=== PATIENT | male | born 1975 | race Caucasian/White ===

== ENCOUNTER 2022-10-26 19:48 | Inpatient (IN) | payer OTHER ==
[2022-10-26 20:55] LABS: Anisocytosis Slight; Basophils # (A) 0.1 k/uL (0-0.2); Basophils % (A) 1 %; Eosinophils # (A) 0.1 k/uL (0-0.7); Eosinophils % (A) 2 %; HCT 35.1 % (39.0-53.0); HGB 10.7 gm/dL (13.0-17.5); Hypochromasia Moderate; Lymphocytes # (A) 1.8 k/uL (1.0-4.8); Lymphocytes % (A) 29 %; MCHC 30.6 g/dL (31.0-37.0); MCV 71.7 fL (80.0-100.0); Mean Platelet Volume 7.7; Microcytosis Marked; Monocytes # (A) 0.4 k/uL (0-1.0); Monocytes % (A) 7 %; Neutrophils # (A) 3.6 k/uL (1.3-7.7); Neutrophils % (A) 58 %; Platelet Count 247 k/uL (150-450); Poikilocytosis Slight; RBC 4.89 m/uL (4.30-5.90); RDW 19.3 % (11.5-15.5); WBC 6.2 k/uL (3.8-10.6)
[2022-10-26 21:07] LABS: ALT 44 U/L (4-49); AST 47 U/L (17-59); African American GFR (CKD) >90 (>60 ml/min/1.73 sqM); Albumin 4.2 g/dL (3.5-5.0); Alkaline Phosphatase 126 U/L (38-126); Amylase 56 U/L (30-110); Anion Gap 8 mmol/L; Blood Urea Nitrogen 16 mg/dL (9-20); Calcium 8.4 mg/dL (8.4-10.2); Carbon Dioxide 26 mmol/L (22-30); Chloride 101 mmol/L (98-107); Glucose 115 mg/dL (74-99); Lipase 172 U/L (23-300); Non-African American GFR(CKD) >90 (>60 ml/min/1.73 sqM); Potassium 3.2 mmol/L (3.5-5.1); Sodium 135 mmol/L (137-145); Total Bilirubin 0.5 mg/dL (0.2-1.3); Total Protein 7.2 g/dL (6.3-8.2)
[2022-10-26] MEDS ORDERED: SODIUM CHLORIDE 0.9% 1,000 ML IV STA (21:37)
[2022-10-26] MEDS ORDERED: ONDANSETRON 4 MG/2 ML VIAL IVP STA (21:51)
--- NOTE | 2022-10-26 21:51 | ED ---
Alcohol HPI - General Chief Complaint: Abdominal Pain Stated Complaint: detox,vomiting Time Seen by Provider: 10/26/22 21:30 Source: patient, RN notes reviewed Mode of arrival: ambulatory Limitations: no limitations - History of Present Illness Initial Comments: Patient is a 47-year-old male presenting to the emergency room with complaints of abdominal pain nausea vomiting along with tremors. He reports that he is attempting to quit drinking and had his last drink approximately 24 hours ago. He has been drinking approximately a fifth a day for the last 8 months. He did have a brief period of sobriety prior to that 8 months but has recurrent alcohol abuse and has gone through alcohol withdrawals in the past. He reports that he was hoping to become sober prior to 24 hours ago but he began to go to withdrawals consequently he had a drink again. In addition to his alcohol abuse history he has past medical history significant for degenerative disc disease. - Related Data Home Medications Medication Instructions Recorded Confirmed Albuterol Sulfate [Ventolin HFA] 1 - 2 puff INHALATION RT-Q6H PRN 10/27/22 10/27/22 Buprenorphine HCl/Naloxone HCl 2 - 3 film SUBLINGUAL DIRECTED 10/27/22 10/27/22 [Suboxone 8 mg-2 mg Sl Film] Cyclobenzaprine [Flexeril] 10 mg PO BID PRN 10/27/22 10/27/22 Fluticasone Propionate [Flonase 2 spray EA NOSTRIL DAILY 10/27/22 10/27/22 Allergy Relief] Meloxicam 7.5 mg PO BID 10/27/22 10/27/22 Naproxen Sodium [Naproxen Sodium 375 mg PO BID 10/27/22 10/27/22 ER] Omeprazole 40 mg PO BID 10/27/22 10/27/22 Pregabalin [Lyrica] 100 mg PO TID 10/27/22 10/27/22 QUEtiapine [SEROquel] 100 mg PO BID 10/27/22 10/27/22 QUEtiapine [SEROquel] 400 mg PO HS 10/27/22 10/27/22 Sucralfate [Carafate] 1 gm PO BID 10/27/22 10/27/22 Previous Rx's Medication Instructions Recorded Magnesium Oxide [Mag-Ox] 400 mg PO DAILY 30 Days #30 tab 11/03/22 Nicotine 21Mg/24Hr Patch [Habitrol] 1 patch TRANSDERM DAILY 30 Days 11/03/22 #30 patch Thiamine [Vitamin B-1] 100 mg PO DAILY 30 Days #30 tab 11/03/22 cloNIDine HCL [Catapres] 0.1 mg PO TID 30 Days #90 tab 11/03/22 lamoTRIgine [LaMICtal] 50 mg PO BID 30 Days #60 tab 11/03/22 Allergies Allergy/AdvReac Type Severity Reaction Status Date / Time No Known Allergies Allergy Verified 10/27/22 07:30 Review of Systems ROS Statement: Those systems with pertinent positive or pertinent negative responses have been documented in the HPI. ROS Other: All systems not noted in ROS Statement are negative. Past Medical History Additional Past Medical History / Comment(s): herniated disc in back History of Any Multi-Drug Resistant Organisms: None Reported Past Surgical History: No Surgical Hx Reported Smoking Status: Current every day smoker Past Alcohol Use History: Abuse Past Drug Use History: Marijuana - Past Family History Father Family Medical History: Cancer Additional Family Medical History / Comment(s): from colon cancer Mother Family Medical History: Cancer Additional Family Medical History / Comment(s): from stomach cancer Brother(s) Additional Family Medical History / Comment(s): ptsd from General Exam - General Exam Comments Initial Comments: GENERAL: No acute distress, well developed, well nourished. HEENT: Normocephalic, atraumatic. Pupils equal, round, reactive to light. Moist mucous membranes. LUNGS: No respiratory distress. Clear to auscultation, no adventitious sounds, no use of accessory muscles. HEART: Mild tachycardia, regular rhythm without murmur, rub, or gallop. ABDOMEN: Normal bowel sounds. Soft, non-distended. Mild generalized tenderness. BACK: Normal inspection. EXTREMITIES: No edema. No tenderness. Moves all extremities. NEUROLOGIC: Alert & oriented x 3. CN II-XII grossly intact. Fine hand tremor noted bilaterally with hands extended. PSYCHIATRIC: Anxious affect and behavior. DERMATOLOGIC: Skin intact, without rashes or lesions noted. Limitations: no limitations Course Vital Signs 10/26/22 10/26/22 10/26/22 20:27 22:24 23:53 Temperature 98.2 F Pulse Rate 122 H 116 H 99 Respiratory 16 18 18 Rate Blood Pressure 135/84 126/68 131/82 O2 Sat by Pulse 100 98 98 Oximetry 10/27/22 10/27/22 10/27/22 02:52 03:08 04:15 Temperature Pulse Rate 118 H 113 H 106 H Respiratory 18 18 18 Rate Blood Pressure 128/78 109/56 136/88 O2 Sat by Pulse 98 97 98 Oximetry 10/27/22 10/27/22 10/27/22 05:15 06:11 07:01 Temperature Pulse Rate 100 100 95 Respiratory 18 16 Rate Blood Pressure 127/82 117/79 O2 Sat by Pulse 99 99 Oximetry 10/27/22 10/27/22 10/27/22 08:00 10:00 12:17 Temperature Pulse Rate 98 108 H 95 Respiratory 18 18 18 Rate Blood Pressure 118/77 150/89 128/85 O2 Sat by Pulse 95 96 95 Oximetry 10/27/22 14:13 Temperature Pulse Rate 93 Respiratory 17 Rate Blood Pressure 124/84 O2 Sat by Pulse 97 Oximetry Medical Decision Making - Medical Decision Making Was pt. sent in by a medical professional or institution ([facility]idez, [employer], urgent care, hospital, or custodial...) When possible be specific @ -No Did you speak to anyone other than the patient for history (EMS, parent, family, police, friend...)? What history was obtained from this source @ -No Did you review nursing and triage notes (agree or disagree)? Why? @ -I reviewed and agree with nursing and triage notes Were old charts reviewed (outside hosp., previous admission, EMS record, old EKG, old radiological studies, urgent care reports/EKG's, custodial records)? Report findings @ -No old charts were reviewed Differential Diagnosis (chest pain, altered mental status, abdominal pain women, abdominal pain men, vaginal bleeding, weakness, fever, dyspnea, syncope, headache, dizziness, GI bleed, back pain, seizure, CVA, palpatations, mental health)? @ -MDM differentialDifferential Abdominal Pain Men: Appendicitis, cholecystitis, diverticulosis, ischemic bowel, pancreatitis, hepatitis, UTI, gastroenteritis, AAA, incarcerated hernia, bowel obstruction, constipation, inflammatory bowel, hepatitis, peptic ulcer disease, splenic infarction, perforated viscus, testicular torsion, this is not meant to be an all-inclusive list EKG interpreted by me (3pts min.). @ -None done X-rays interpreted by me (1pt min.). @ -KUB as ordered by triaging team without acute abnormalities. Normal gas pattern, no free air, free fluid or masses. CT interpreted by me (1pt min.). @ -None done U/S interpreted by me (1pt. min.). @ -None done What testing was considered but not performed or refused? (CT, X-rays, U/S, labs)? Why? @ -CT of the abdomen was considered due to abdominal pain however in the setting of DTs with nausea and vomiting will defer. What meds were considered but not given or refused? Why? @ -None Did you discuss the management of the patient with other professionals (professionals i.e. DrMelisa, PA, FI[employer] EXTINGUISHER CHARGER, lab, RT, psych nurse, social service worker, clinical assessment manager, teacher, home lending officer, shoe caser)? Give summary @ -Dr. Truong regarding recommendation for admission for alcohol withdrawal. He is accepting of admission. Was smoking cessation discussed for >3mins.? @ -No Was critical care preformed (if so, how long)? @ -No Were there social determinants of health that impacted care today? How? (Ho melessness, low income, unemployed, alcoholism, drug addiction, transportation, low edu. Level, literacy, decrease access to med. care, [place] [facility], rehab)? @ -Alcoholism, no plan for admission into rehabilitation upon discharge at this time. Was there de-escalation of care discussed even if they declined (Discuss DNR or withdrawal of care, Hospice)? DNR status @ -No What co-morbidities impacted this encounter? (DM, HTN, Smoking, COPD, CAD, Cancer, CVA, ARF, Chemo, Hep., AIDS, mental health diagnosis, sleep apnea, morbid obesity)? @ -Alcoholism Was patient admitted / discharged? Hospital course, mention meds given and route, prescriptions, significant lab abnormalities, going to OR and other pertinent info. @ -47-year-old male presenting to the emergency room with complaints of abdominal pain, nausea vomiting tremors and anxiety ongoing since earlier today. He reports that he quit drinking approximately 24 hours ago. He states that his drink 24 hours ago was to help luis the symptoms he is currently experiencing. Triage orders included a KUB, CMP, amylase, lipase, CMP and CBC; will add breath alcohol test, serum alcohol level, magnesium and phosphorus level. Will give IV fluid bolus and Zofran monitor symptoms. Nausea improved with Zofran and IV fluids still with persistent tremor and anxiety. Laboratory results show anemia, no leukocytosis, slightly low sodium at 135 low potassium at 3.2 magnesium slightly low but stable at 1.5, phosphorus normal at 3.2 amylase and lipase along with liver enzymes and bilirubin normal serum alcohol level less than 10. Will repeat potassium IV in the setting of nausea and vomiting. Will initiate CIWA scale and give a one-time dose of Ativan. Symptoms markedly improved with IV Ativan. CIWA score is 17 indicating it need for admission for detox for alcohol withdrawals. Spoke with Dr. Truong as above regarding admission for alcohol withdrawals, nausea and vomiting. He is accepting of admission. Will continue IV hydration, will give banana bag after IV potassium completed. Will admit patient in stable condition to [facility] under Dr. Truong for treatment of alcohol withdrawals. Undiagnosed new problem with uncertain prognosis? @ -No Drug Therapy requiring intensive monitoring for toxicity (Heparin, Nitro, Insulin, Cardizem)? @ -No Were any procedures done? @ -No Diagnosis/symptom? @ -Alcohol withdrawals Acute, or Chronic, or Acute on Chronic? @ -Acute Uncomplicated (without systemic symptoms) or Complicated (systemic symptoms)? @ -Complicated Side effects of treatment? @ -No Exacerbation, Progression, or Severe Exacerbation? @ -No Poses a threat to life or bodily function? How? (Chest pain, USA, MD, pneumonia, PE, COPD, DKA, ARF, appy, cholecystitis, CVA, Diverticulitis, Homicidal, Suicidal, threat to staff... and all critical care pts) @ -Yes Diagnosis/symptom? @ -Hypokalemia Acute, or Chronic, or Acute on Chronic? @ -Acute Uncomplicated (without systemic symptoms) or Complicated (systemic symptoms)? @ -Complicated Side effects of treatment? @ -none Exacerbation, Progression, or Severe Exacerbation] @ -no Poses a threat to life or bodily function? @ -Yes Case discussed with Dr. Fletcher. - Lab Data Result diagrams: 11/02/22 06:10 11/02/22 06:10 Lab Results 10/26/22 10/26/22 10/26/22 Range/Units 20:48 20:48 21:41 WBC 6.2 (3.8-10.6) k/uL RBC 4.89 (4.30-5.90) m/uL Hgb 10.7 L (13.0-17.5) gm/dL Hct 35.1 L (39.0-53.0) % MCV 71.7 L (80.0-100.0) fL MCH 22.0 L (25.0-35.0) pg MCHC 30.6 L (31.0-37.0) g/dL RDW 19.3 H (11.5-15.5) % Plt Count 247 (150-450) k/uL MPV 7.7 Neutrophils % 58 % Lymphocytes % 29 % Monocytes % 7 % Eosinophils % 2 % Basophils % 1 % Neutrophils # 3.6 (1.3-7.7) k/uL Lymphocytes # 1.8 (1.0-4.8) k/uL Monocytes # 0.4 (0-1.0) k/uL Eosinophils # 0.1 (0-0.7) k/uL Basophils # 0.1 (0-0.2) k/uL Hypochromasia Moderate Poikilocytosis Slight Anisocytosis Slight Microcytosis Marked Sodium 135 L (137-145) mmol/L Potassium 3.2 L (3.5-5.1) mmol/L Chloride 101 (98-107) mmol/L Carbon Dioxide 26 (22-30) mmol/L Anion Gap 8 mmol/L BUN 16 (9-20) mg/dL Creatinine 0.77 (0.66-1.25) mg/dL Est GFR (CKD-EPI)AfAm >90 (>60 ml/min/1.73 sqM) Est GFR (CKD-EPI)NonAf >90 (>60 ml/min/1.73 sqM) Glucose 115 H (74-99) mg/dL Calcium 8.4 (8.4-10.2) mg/dL Phosphorus 3.2 (2.5-4.5) mg/dL Magnesium 1.5 L (1.6-2.3) mg/dL Total Bilirubin 0.5 (0.2-1.3) mg/dL AST 47 (17-59) U/L ALT 44 (4-49) U/L Alkaline Phosphatase 126 (38-126) U/L Total Protein 7.2 (6.3-8.2) g/dL Albumin 4.2 (3.5-5.0) g/dL Amylase 56 (30-110) U/L Lipase 172 (23-300) U/L Serum Alcohol <10 mg/dL - Radiology Data Radiology results: report reviewed, image reviewed Disposition Clinical Impression: Alcohol withdrawal, Hypokalemia Disposition: ADMITTED IP TO THIS [facility] Condition: Stable Time of Disposition: 00:05
--- NOTE | 2022-10-26 21:56 | XR ---
EXAMINATION TYPE: XR KUB DATE OF EXAM: 10/26/2022 COMPARISON: NONE HISTORY: Abdomen pain TECHNIQUE: 2 view FINDINGS: Bowel gas pattern is normal. No sign of intestinal obstruction or pneumoperitoneum. Fecal p attern is normal. No evidence of a mass. IMPRESSION: Nonacute abdomen.
[2022-10-26] MEDS ORDERED: POTASSIUM CHLORIDE 20 MEQ in WATER FOR INJECTION 1 100ML.BAG IVPB STA (22:04)
[2022-10-26] MEDS ORDERED: LORazepam 1 MG TAB PO STA (22:34)
[2022-10-27 00:07] LABS: Alcohol <10 mg/dL; Magnesium 1.5 mg/dL (1.6-2.3)
[2022-10-27] MEDS ORDERED: NALOXONE 0.4 MG/ML 1 ML VIAL IV PRN (00:08)
[2022-10-27 00:28] LABS: Phosphorus 3.2 mg/dL (2.5-4.5)
[2022-10-27 01:06] LABS: Amphetamine Screen,Urine Not Detected (NotDetected); Barbiturate Screen,Urine Not Detected (NotDetected); Benzodiazepines Screen,Urine Not Detected (NotDetected); Cocaine Screen,Urine Detected (NotDetected); Methadone Screen, Urine Not Detected (NotDetected); Opiate Screen,Urine Not Detected (NotDetected); Oxycodone Screen, Urine Not Detected (NotDetected); Phencyclidine Screen,Urine Not Detected (NotDetected); Tricyclic Antidepressant,Urine Detected (NotDetected); Urn Cannabinoid Scrn Not Detected (NotDetected)
[2022-10-27] MEDS: LORazepam 1 MG TAB PO PRN ×4 (01:07→23:52)
[2022-10-27] MEDS: 0.9% NACL WITH KCL 20 MEQ/L 1,000 ML with THIAMINE 100 MG, FOLIC ACID 1 MG IV SCH ×6 (01:08→20:58)
[2022-10-27] MEDS: QUEtiapine 400 MG TAB PO SCH ×2 (01:23→20:58)
--- NOTE | 2022-10-28 02:07 | HP ---
HISTORY AND PHYSICAL HISTORY OF PRESENT ILLNESS: A 47-year-old white male, admitted with abdominal pain, nausea, vomiting, tremors. He quit drinking 24 hours ago. for 8 months, has recurrent alcohol abuse, came in with CIWA protocol, alcohol withdrawal, alcohol abuse, has history of degenerative disk disease. ALLERGIES: Negative. PAST MEDICAL HISTORY: Herniated discs in the back, current everyday smoker. No alcohol. Marijuana abuser. REVIEW OF SYSTEMS: A 14-point review of systems, tremors, weakness, fatigue, otherwise negative. PHYSICAL EXAMINATION: VITAL SIGNS: Pulse rate is 99/122, respiratory rate 16-18, blood pressure is 120s to 130s over 80s to 90s, O2 98 to 100, and temp 98.2. CARDIOVASCULAR: S1, S2. LUNGS: Clear. GI: Soft. PSYCH: Fair mood and affect. NEUROLOGIC: Cranial nerves intact, mild tremor. LABORATORY DATA: Potassium 3.2, sodium 135, alcohol less than 10. Lipase 172. ASSESSMENT: Alcohol withdrawal syndrome with mild tremors, dehydration, alcohol dependence, acute on chronic anemia secondary to alcoholism and tachycardia secondary to alcohol withdrawal. CIWA protocol, multivitamins thiamin. Continue with Ativan p.r.n. Prognosis guarded. MMODL / IJN: [id number] /
[2022-10-28] MEDS: LORazepam 1 MG TAB PO PRN ×4 (04:47→22:04)
[2022-10-28 07:06] LABS: ALT 40 U/L (4-49); AST 44 U/L (17-59); African American GFR (CKD) >90 (>60 ml/min/1.73 sqM); Albumin 3.2 g/dL (3.5-5.0); Albumin/Globulin Ratio 1.3; Alkaline Phosphatase 85 U/L (38-126); Anion Gap 3 mmol/L; Blood Urea Nitrogen 7 mg/dL (9-20); Calcium 8.1 mg/dL (8.4-10.2); Carbon Dioxide 27 mmol/L (22-30); Chloride 108 mmol/L (98-107); Globulin 2.5 g/dL; Glucose 92 mg/dL (74-99); Non-African American GFR(CKD) >90 (>60 ml/min/1.73 sqM); Potassium 3.6 mmol/L (3.5-5.1); Sodium 138 mmol/L (137-145); Total Bilirubin 0.2 mg/dL (0.2-1.3); Total Protein 5.7 g/dL (6.3-8.2)
[2022-10-28 07:21] LABS: Anisocytosis Slight; HCT 28.7 % (39.0-53.0); Hypochromasia Marked; MCH 22.4 pg (25.0-35.0); MCHC 30.6 g/dL (31.0-37.0); Microcytosis Moderate; Platelet Count 242 k/uL (150-450); Poikilocytosis Slight; RBC 3.93 m/uL (4.30-5.90); RDW 19.3 % (11.5-15.5); WBC 3.7 k/uL (3.8-10.6)
[2022-10-28 07:22] LABS: HGB 8.8 gm/dL (13.0-17.5)
[2022-10-28] MEDS: THIAMINE 100 MG TAB PO SCH (08:40)
[2022-10-28] MEDS ORDERED: ALBUTEROL NEBULIZED 2.5 MG/3 ML INHALATION PRN (10:30)
[2022-10-28] MEDS: QUEtiapine 100 MG TAB PO SCH ×2 (11:12→20:07)
[2022-10-28] MEDS: SUCRALFATE 1 GM TAB PO SCH ×2 (11:12→20:07)
[2022-10-28] MEDS: NON FORMULARY DRUG (Buprenorphine Hcl/Naloxone Hcl [Suboxone 8 Mg-2 Mg Sl Film] 1 EACH Fil SUBLINGUAL SCH (11:15)
[2022-10-28 14:00] LABS: Basophils # (M) 0.04 k/uL (0-0.2); Eosinophils # (M) 0.15 k/uL (0-0.7); Monocytes # (M) 0.41 k/uL (0-1.0); Neutrophils # (M) 1.81 k/uL (1.3-7.7); Neutrophils % (M) 49 %; Nucleated Red Blood Cells 0 /100 WBC (0-0); Total Cells Counted 100
[2022-10-28 14:03] LABS: Target Cells Present
[2022-10-28 14:04] LABS: Mixed Population RBC Present
[2022-10-28] MEDS: PREGABALIN 100 MG CAP PO SCH ×2 (16:18→21:30)
[2022-10-28] MEDS: PANTOPRAZOLE 40 MG TABLET PO SCH (17:33)
[2022-10-28] MEDS: 0.9% NACL WITH KCL 20 MEQ/L 1,000 ML with THIAMINE 100 MG, FOLIC ACID 1 MG IV SCH ×3 (17:56)
[2022-10-28] MEDS: ONDANSETRON 4 MG/2 ML VIAL IVP PRN (17:57)
[2022-10-28] MEDS: MELOXICAM 7.5 MG TAB PO SCH (20:06)
[2022-10-28] MEDS: NAPROXEN 250 MG TAB PO SCH (20:07)
[2022-10-28] MEDS: QUEtiapine 400 MG TAB PO SCH (20:07)
[2022-10-28] MEDS ORDERED: SUCRALFATE 1 GM TAB PO SCH (21:00)
[2022-10-28] MEDS: cloNIDine HCL 0.1 MG TAB PO SCH (22:10)
[2022-10-29] MEDS: ONDANSETRON 4 MG/2 ML VIAL IVP PRN (00:04)
[2022-10-29] MEDS: LORazepam 1 MG TAB PO PRN ×4 (00:04→23:23)
[2022-10-29] MEDS: cloNIDine HCL 0.1 MG TAB PO SCH ×3 (06:16→21:24)
[2022-10-29] MEDS: NON FORMULARY DRUG (Buprenorphine Hcl/Naloxone Hcl [Suboxone 8 Mg-2 Mg Sl Film] 1 EACH Fil SUBLINGUAL SCH (08:00)
[2022-10-29] MEDS: MELOXICAM 7.5 MG TAB PO SCH (08:02)
[2022-10-29] MEDS: FAMOTIDINE 20 MG TAB PO SCH (08:02)
[2022-10-29] MEDS: PANTOPRAZOLE 40 MG TABLET PO SCH ×2 (08:02→17:15)
[2022-10-29] MEDS: SUCRALFATE 1 GM TAB PO SCH ×2 (08:03→21:24)
[2022-10-29] MEDS: PREGABALIN 100 MG CAP PO SCH ×3 (08:04→21:24)
[2022-10-29] MEDS: THIAMINE 100 MG TAB PO SCH (08:04)
[2022-10-29] MEDS: QUEtiapine 100 MG TAB PO SCH ×2 (08:04→21:25)
[2022-10-29] MEDS: NAPROXEN 250 MG TAB PO SCH ×2 (08:04→21:25)
[2022-10-29] MEDS: FLUTICASONE 50MCG/SPRAY NASAL 16GM EA NOSTRIL SCH (08:51)
[2022-10-29 13:20] LABS: ALT 49 U/L (4-49); AST 52 U/L (17-59); African American GFR (CKD) >90 (>60 ml/min/1.73 sqM); Albumin 3.3 g/dL (3.5-5.0); Albumin/Globulin Ratio 1.3; Alkaline Phosphatase 89 U/L (38-126); Anion Gap 3 mmol/L; Blood Urea Nitrogen 7 mg/dL (9-20); Calcium 8.3 mg/dL (8.4-10.2); Carbon Dioxide 27 mmol/L (22-30); Chloride 109 mmol/L (98-107); Globulin 2.6 g/dL; Glucose 103 mg/dL (74-99); Lipase 358 U/L (23-300); Magnesium 1.8 mg/dL (1.6-2.3); Non-African American GFR(CKD) >90 (>60 ml/min/1.73 sqM); Potassium 4.4 mmol/L (3.5-5.1); Sodium 139 mmol/L (137-145); Total Bilirubin 0.3 mg/dL (0.2-1.3); Total Protein 5.9 g/dL (6.3-8.2)
[2022-10-29 13:21] LABS: Anisocytosis Slight; Basophils % (A) 1 %; Eosinophils # (A) 0.1 k/uL (0-0.7); Eosinophils % (A) 3 %; HCT 29.3 % (39.0-53.0); HGB 8.9 gm/dL (13.0-17.5); Hypochromasia Marked; Lymphocytes # (A) 1.1 k/uL (1.0-4.8); Lymphocytes % (A) 25 %; MCH 22.7 pg (25.0-35.0); MCHC 30.4 g/dL (31.0-37.0); MCV 74.7 fL (80.0-100.0); Mean Platelet Volume 7.1; Microcytosis Moderate; Monocytes # (A) 0.4 k/uL (0-1.0); Monocytes % (A) 8 %; Neutrophils # (A) 2.6 k/uL (1.3-7.7); Neutrophils % (A) 58 %; Platelet Count 227 k/uL (150-450); Poikilocytosis Slight; RBC 3.92 m/uL (4.30-5.90); RDW 19.5 % (11.5-15.5); WBC 4.5 k/uL (3.8-10.6)
[2022-10-29] MEDS: MAGNESIUM OXIDE 400 MG TAB PO SCH (13:56)
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
[2022-10-29] MEDS: 0.9% NACL WITH KCL 20 MEQ/L 1,000 ML with THIAMINE 100 MG, FOLIC ACID 1 MG IV SCH ×3 (18:06)
[2022-10-29] MEDS: QUEtiapine 400 MG TAB PO SCH (21:25)
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
[2022-10-30] MEDS: LORazepam 1 MG TAB PO PRN ×4 (02:19→20:11)
--- NOTE | 2022-10-30 03:09 | XR ---
EXAMINATION TYPE: XR hand complete RT DATE OF EXAM: 10/30/2022 COMPARISON: NONE HISTORY: Pain TECHNIQUE: 3 view FINDINGS: There is some thickening and deformity of the fifth metacarpal related to old healed fractu re. No acute fracture seen. Joint spaces are fairly normal. The carpal bones are intact. IMPRESSION: No acute abnormality of the right hand.
[2022-10-30 08:51] LABS: Basophils # (A) 0.03 X 10*3/uL (0.00-0.10); Basophils % (A) 0.6 %; Eosinophils # (A) 0.16 X 10*3/uL (0.04-0.35); Eosinophils % (A) 3.2 %; HCT 29.6 % (39.6-50.0); HGB 8.3 g/dL (13.0-17.0); Immature Grans, Automated 0.2 %; Lymphocytes # (A) 1.39 X 10*3/uL (0.90-5.00); Lymphocytes % (A) 28.1 %; MCH 21.3 pg (27.0-32.0); MCV 76.1 fL (80.0-97.0); Mean Platelet Volume 9.4 fL (9.5-12.2); Monocytes % (A) 12.1 %; NRBC Per 100 WBC 0 /100 WBCS (0.0-0.0); Neutrophils # (A) 2.76 X 10*3/uL (1.80-7.70); Neutrophils % (A) 55.8 %; Platelet Count 262 X 10*3/uL (140-440); RBC 3.89 X 10*6/uL (4.40-5.60); RDW 21.1 % (11.5-14.5); WBC 4.95 X 10*3/uL (4.50-10.00)
[2022-10-30] MEDS: NON FORMULARY DRUG (Buprenorphine Hcl/Naloxone Hcl [Suboxone 8 Mg-2 Mg Sl Film] 1 EACH Fil SUBLINGUAL SCH (08:57)
[2022-10-30] MEDS: PANTOPRAZOLE 40 MG TABLET PO SCH ×2 (08:58→17:06)
[2022-10-30] MEDS: cloNIDine HCL 0.1 MG TAB PO SCH ×3 (08:58→21:04)
[2022-10-30] MEDS: MAGNESIUM OXIDE 400 MG TAB PO SCH (08:58)
[2022-10-30] MEDS: SUCRALFATE 1 GM TAB PO SCH ×2 (08:58→21:04)
[2022-10-30] MEDS: PREGABALIN 100 MG CAP PO SCH ×3 (08:58→21:05)
[2022-10-30] MEDS: FAMOTIDINE 20 MG TAB PO SCH (08:58)
[2022-10-30] MEDS: THIAMINE 100 MG TAB PO SCH (08:58)
[2022-10-30] MEDS: FLUTICASONE 50MCG/SPRAY NASAL 16GM EA NOSTRIL SCH (08:59)
[2022-10-30] MEDS: QUEtiapine 100 MG TAB PO SCH ×2 (08:59→21:05)
[2022-10-30 09:00] LABS: ALT 47 U/L (10-49); AST 36 U/L (14-35); African American GFR (CKD) 128.4 (60.0-200.0); Albumin 3.8 g/dL (3.8-4.9); Albumin/Globulin Ratio 1.73 (1.60-3.17); Alkaline Phosphatase 92 U/L (41-126); BUN/Creat Ratio 11.29 Ratio (12.00-20.00); Blood Urea Nitrogen 7.9 mg/dL (9.0-27.0); Calcium 8.7 mg/dL (8.7-10.3); Chloride 106 mmol/L (96-109); Globulin 2.2 g/dL (1.6-3.3); Glucose 91 mg/dL (70-110); Non-African American GFR(CKD) 110.8 (60.0-200.0); Potassium 4.5 mmol/L (3.5-5.5); Sodium 143 mmol/L (135-145); Total Bilirubin <0.15 mg/dL (0.30-1.20)
[2022-10-30] MEDS: CYCLOBENZAPRINE 10 MG TAB PO PRN ×2 (09:08→17:09)
[2022-10-30] MEDS: NICOTINE 21MG/24HR PATCH TRANSDERM SCH (10:18)
--- NOTE | 2022-10-30 14:43 | P.PN ---
Subjective Progress Note Date: 10/30/22 CHIEF COMPLAINT: Abdominal pain and anemia HISTORY OF PRESENT ILLNESS: Patient admitted to the hospital with alcohol intoxication. Surgical service consulted regards to abdominal pain. Patient also has evidence of anemia. He denies any blood in his stools. One of his episodes of emesis at home possibly had blood noted in it per patient. Currently has had no further vomiting in about 24 hours. He is eating a regular diet. Abdominal pain is improving. Afebrile. WBC is 4.95 hemoglobin trending down from 8.9-8.3+ to 62 sodium is 143 potassium 4.5 creatinine 0.7 Patient seen and examined with Dr. magana PHYSICAL EXAM: VITAL SIGNS: Reviewed. GENERAL: Well-developed in no acute distress. HEENT: No sclera icterus. Extraocular movements grossly intact. Moist buccal mucosa. Head is atraumatic, normocephalic. ABDOMEN: Soft. Nondistended. NEUROLOGIC: Alert and oriented. Cranial nerves II through XII grossly intact. ASSESSMENT: 1. Abdominal pain with nausea and vomiting 2. Alcohol withdrawal 3. Alcohol abuse 4. Anemia 5. Father with history of colon cancer PLAN: -Patient scheduled for EGD and colonoscopy on Wednesday with Dr. magana -Continue PPI -Continue supportive care -Continue CIWA protocol with Ativan for alcohol withdrawal -Continue to monitor hemoglobin Physician Truck Driver Flatbed note has been reviewed by physician. Signing provider agrees with the documented findings, assessment, and plan of care. Objective - Vital Signs Vital signs: Vital Signs Temp 97.5 F L 10/30/22 12:25 Pulse 101 H 10/30/22 12:25 Resp 16 10/30/22 12:25 BP 148/97 10/30/22 12:25 Pulse Ox 98 10/30/22 12:25 FiO2 Intake & Output 10/29/22 10/30/22 10/30/22 18:59 06:59 18:59 Intake Total 600 590 Balance 600 590 Intake: Intake, IV Titration 600 Amount 0.9% NaCl with KCl 20 Meq 600 /l 1,000 ml @ 50 mls/hr IV .Q20H2M BRUCE with Thiamine 100 mg with Folic Acid 1 mg Rx#: [id number] Oral 590 Other: Voiding Method Toilet # Voids 3 - Labs CBC & Chem 7: 10/30/22 04:24 10/30/22 04:24 Labs: Abnormal Lab Results - Last 24 Hours (Table) 10/30/22 10/30/22 Range/Units 04:24 04:24 RBC 3.89 L (4.40-5.60) X 10*6/uL Hgb 8.3 L (13.0-17.0) g/dL Hct 29.6 L (39.6-50.0) % MCV 76.1 L (80.0-97.0) fL MCH 21.3 L (27.0-32.0) pg MCHC 28.0 L (32.0-37.0) g/dL RDW 21.1 H (11.5-14.5) % MPV 9.4 L (9.5-12.2) fL BUN 7.9 L (9.0-27.0) mg/dL BUN/Creatinine Ratio 11.29 L (12.00-20.00) Ratio Total Bilirubin <0.15 L (0.30-1.20) mg/dL AST 36 H (14-35) U/L Total Protein 6.0 L (6.2-8.2) g/dL
[2022-10-30] MEDS: 0.9% NACL WITH KCL 20 MEQ/L 1,000 ML with THIAMINE 100 MG, FOLIC ACID 1 MG IV SCH ×3 (17:06)
[2022-10-30] MEDS: QUEtiapine 400 MG TAB PO SCH (21:05)
[2022-10-31] MEDS: LORazepam 1 MG TAB PO PRN ×3 (02:53→19:22)
[2022-10-31] MEDS: CYCLOBENZAPRINE 10 MG TAB PO PRN (05:11)
[2022-10-31] MEDS: 0.9% NACL WITH KCL 20 MEQ/L 1,000 ML with THIAMINE 100 MG, FOLIC ACID 1 MG IV SCH ×3 (06:00)
[2022-10-31] MEDS: SUCRALFATE 1 GM TAB PO SCH ×2 (08:38→21:53)
[2022-10-31] MEDS: THIAMINE 100 MG TAB PO SCH (08:38)
[2022-10-31] MEDS: cloNIDine HCL 0.1 MG TAB PO SCH ×3 (08:38→21:53)
[2022-10-31] MEDS: FAMOTIDINE 20 MG TAB PO SCH (08:38)
[2022-10-31] MEDS: MAGNESIUM OXIDE 400 MG TAB PO SCH (08:38)
[2022-10-31] MEDS: PANTOPRAZOLE 40 MG TABLET PO SCH ×2 (08:38→16:53)
[2022-10-31] MEDS: NICOTINE 21MG/24HR PATCH TRANSDERM SCH (08:39)
[2022-10-31] MEDS: PREGABALIN 100 MG CAP PO SCH ×3 (08:39→21:53)
[2022-10-31] MEDS: QUEtiapine 100 MG TAB PO SCH ×2 (08:39→21:53)
[2022-10-31] MEDS: FLUTICASONE 50MCG/SPRAY NASAL 16GM EA NOSTRIL SCH (08:40)
[2022-10-31 09:16] LABS: HCT 31.2 % (39.6-50.0); HGB 8.8 g/dL (13.0-17.0); MCH 21.2 pg (27.0-32.0); MCHC 28.2 g/dL (32.0-37.0); MCV 75.2 fL (80.0-97.0); Mean Platelet Volume 9.8 fL (9.5-12.2); NRBC Per 100 WBC 0 /100 WBCS (0.0-0.0); Platelet Count 283 X 10*3/uL (140-440); RBC 4.15 X 10*6/uL (4.40-5.60); RDW 20.6 % (11.5-14.5)
[2022-10-31 09:29] LABS: African American GFR (CKD) 121.6 (60.0-200.0); Anion Gap 8.5 mmol/L (10.00-18.00); Blood Urea Nitrogen 9.6 mg/dL (9.0-27.0); Calcium 8.7 mg/dL (8.7-10.3); Carbon Dioxide 24.5 mmol/L (20.0-27.5); Non-African American GFR(CKD) 104.9 (60.0-200.0); Potassium 4.6 mmol/L (3.5-5.5)
[2022-10-31] MEDS: NON FORMULARY DRUG (Buprenorphine Hcl/Naloxone Hcl [Suboxone 8 Mg-2 Mg Sl Film] 1 EACH Fil SUBLINGUAL SCH (10:26)
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
--- NOTE | 2022-10-31 15:26 | P.PN ---
Subjective Progress Note Date: 10/31/22 CHIEF COMPLAINT: Anemia HISTORY OF PRESENT ILLNESS: The patient is a 47-year-old male who presented with alcohol withdrawal, anemia hemoglobin down 10.7-8.3. He reports 3 days of intractable nausea and vomiting including burning of his chest and throat from heartburn. His symptoms have improved. He is tolerating full liquid diet. No reports of active blood in stools or hematemesis today. Patient reports hematemesis during his 3 days of nausea vomiting. ROS: No reports of nausea and vomiting today. No bowel movements today. No fevers or chills. No new chest pain. No productive sputum. Alcohol abuse with alcohol liver disease PHYSICAL EXAM: VITAL SIGNS: Reviewed CONSTITUTIONAL: Well developed and in no acute distress. EYES: Conjuctivae without sclera icterus. Extraocular movements grossly intact. HEAD, EARS, NOSE, THROAT: Moist buccal mucosa. Head is atraumatic, normocephali c. Hears conversational speech. No nasal drainage. RESPIRATORY: Non-labored respirations and equal bilateral excursions. CARDIOVASCULAR: Palpable 2+ radial pulses. ABDOMEN: No peritonitis MUSCULOSKELETAL: No gross deformity of the lower extremities noted. No clubbing. No cyanosis. SKIN: Good skin turgor. Well perfused. NEUROLOGIC: Cranial nerves II through XII grossly intact. No focal or lateralizing signs. PSYCH: Appropriate affect. Alert and oriented to person, place and time. CLINICAL LABS: Reviewed. Hemoglobin 8.3-8.8, anemia ASSESSMENT: 1. Chronic anemia 2. Alcohol abuse 3. Alcohol withdrawal 4. Hematemesis with GI bleed PLAN: 1. May benefit from upper and lower endoscopy 2. Patient's on Carafate, Pepcid, Protonix for hematemesis and GI bleed Objective - Vital Signs Vital signs: Vital Signs Temp 97.9 F 10/31/22 07:07 Pulse 86 10/31/22 07:07 Resp 17 10/31/22 08:00 BP 144/86 10/31/22 07:07 Pulse Ox 97 10/31/22 07:07 FiO2 Intake & Output 10/30/22 10/31/22 10/31/22 18:59 06:59 18:59 Intake Total 600 600 Balance 600 600 Intake: Intake, IV Titration 600 600 Amount 0.9% NaCl with KCl 20 Meq 600 600 /l 1,000 ml @ 50 mls/hr IV .Q20H2M BRUCE with Thiamine 100 mg with Folic Acid 1 mg Rx#: [id number] Other: Voiding Method Toilet Toilet # Voids 2 - Labs CBC & Chem 7: 10/31/22 04:59 10/31/22 04:59 Labs: Abnormal Lab Results - Last 24 Hours (Table) 10/31/22 10/31/22 Range/Units 04:59 04:59 RBC 4.15 L (4.40-5.60) X 10*6/uL Hgb 8.8 L (13.0-17.0) g/dL Hct 31.2 L (39.6-50.0) % MCV 75.2 L (80.0-97.0) fL MCH 21.2 L (27.0-32.0) pg MCHC 28.2 L (32.0-37.0) g/dL RDW 20.6 H (11.5-14.5) % Anion Gap 8.50 L (10.00-18.00) mmol/L
[2022-10-31] MEDS: SODIUM FERRIC GLUCONAT-SUCROSE 125 MG in SODIUM CHLORIDE 0.9% 100 ML IVPB SCH (18:20)
[2022-10-31] MEDS: QUEtiapine 400 MG TAB PO SCH (21:53)
--- NOTE | 2022-10-31 23:38 | PN ---
PROGRESS NOTE A 47-year-old white male remains on CINV protocol. Abdominal pain possibly EGD, colonoscopy on Wednesday. Blood pressure 130s to 140s over 80s, O2 sat is 97% to 98%, temperature 97.6, pulse is 80s to 90s, respiratory rate 16 to 18. Cardiovascular, S1, S2. Lungs clear. GI, mild tenderness to palpation, diffuse. Hematology, negative Homans. He remains still anemic with hemoglobin 8.3 down from 8.9. Await for Hematology Oncology and possibly get an EGD and colonoscopy on Wednesday for severe anemia. His lipase is high at 358. We are going to repeat it today . PROGNOSIS: Guarded. Continue on CINV protocol possible rehab will be needed. EGD, colonoscopy for severe anemia. Prognosis extremely guarded. MMFRANCHESKAL / IJN: [id number] /
[2022-11-01] MEDS: 0.9% NACL WITH KCL 20 MEQ/L 1,000 ML with THIAMINE 100 MG, FOLIC ACID 1 MG IV SCH ×6 (00:01→22:22)
[2022-11-01] MEDS: LORazepam 1 MG TAB PO PRN ×5 (02:54→21:58)
[2022-11-01] MEDS ORDERED: PEG 3350 (236 GM/BTL) + LYTES 4,000 ML BOTTLE PO ONE (09:00)
[2022-11-01] MEDS: NON FORMULARY DRUG (Buprenorphine Hcl/Naloxone Hcl [Suboxone 8 Mg-2 Mg Sl Film] 1 EACH Fil SUBLINGUAL SCH (09:04)
[2022-11-01] MEDS: MAGNESIUM OXIDE 400 MG TAB PO SCH (09:11)
[2022-11-01] MEDS: FAMOTIDINE 20 MG TAB PO SCH (09:11)
[2022-11-01] MEDS: SUCRALFATE 1 GM TAB PO SCH ×2 (09:11→21:49)
[2022-11-01] MEDS: PREGABALIN 100 MG CAP PO SCH ×3 (09:11→21:49)
[2022-11-01] MEDS: PANTOPRAZOLE 40 MG TABLET PO SCH ×2 (09:11→16:57)
[2022-11-01] MEDS: THIAMINE 100 MG TAB PO SCH (09:11)
[2022-11-01] MEDS: cloNIDine HCL 0.1 MG TAB PO SCH ×3 (09:11→21:49)
[2022-11-01] MEDS: NICOTINE 21MG/24HR PATCH TRANSDERM SCH (09:11)
[2022-11-01] MEDS: FLUTICASONE 50MCG/SPRAY NASAL 16GM EA NOSTRIL SCH (09:12)
[2022-11-01 09:16] LABS: Reticulocyte % 1.91 % (0.10-1.80)
[2022-11-01] MEDS: QUEtiapine 100 MG TAB PO SCH ×2 (09:16→21:49)
[2022-11-01] MEDS: SODIUM FERRIC GLUCONAT-SUCROSE 125 MG in SODIUM CHLORIDE 0.9% 100 ML IVPB SCH (09:23)
[2022-11-01 09:59] LABS: % Iron Saturation 35.43 (15.00-50.00)
--- NOTE | 2022-11-01 15:57 | P.PN ---
Subjective Progress Note Date: 11/01/22 CHIEF COMPLAINT: Anemia HISTORY OF PRESENT ILLNESS: The patient is a 47-year-old male who presented with alcohol withdrawal, anemia hemoglobin down 10.7-8.3. He has resolution of his intractable nausea and vomiting. He is tolerating clear liquid. He is having bowel movements with his bowel prep. No signs of bleeding. ROS: No reports of nausea and vomiting today. No fevers or chills. No new ch est pain. No productive sputum. Alcohol abuse with alcohol liver disease PHYSICAL EXAM: VITAL SIGNS: Reviewed CONSTITUTIONAL: Well developed and in no acute distress. EYES: Conjuctivae without sclera icterus. Extraocular movements grossly intact. HEAD, EARS, NOSE, THROAT: Moist buccal mucosa. Head is atraumatic, normocephalic. Hears conversational speech. No nasal drainage. RESPIRATORY: Non-labored respirations and equal bilateral excursions. CARDIOVASCULAR: Palpable 2+ radial pulses. ABDOMEN: No peritonitis MUSCULOSKELETAL: No gross deformity of the lower extremities noted. No c lubbing. No cyanosis. SKIN: Good skin turgor. Well perfused. NEUROLOGIC: Cranial nerves II through XII grossly intact. No focal or lateralizing signs. PSYCH: Appropriate affect. Alert and oriented to person, place and time. CLINICAL LABS: Reviewed. Iron elevated 187 ASSESSMENT: 1. Chronic anemia 2. Alcohol abuse 3. Alcohol withdrawal 4. Hematemesis with GI bleed 5. Iron excess PLAN: 1. Continue bowel prep until stools are clear. 2. Continue Protonix, Pepcid, Carafate for hematemesis 3. Recommend upper and lower endoscopy due to GI bleed. He is elevated risk due alcohol abuse and alcohol withdrawal Objective - Vital Signs Vital signs: Vital Signs Temp 97.7 F 11/01/22 14:00 Pulse 85 11/01/22 14:00 Resp 16 11/01/22 14:00 BP 127/84 11/01/22 14:00 Pulse Ox 99 11/01/22 14:00 FiO2 Intake & Output 10/31/22 11/01/22 11/01/22 18:59 06:59 18:59 Intake Total 830 Balance 830 Intake: Oral 830 Other: Voiding Method Toilet Toilet Toilet # Voids 2 2 - Labs CBC & Chem 7: 10/31/22 04:59 10/31/22 04:59 Labs: Abnormal Lab Results - Last 24 Hours (Table) 10/29/22 11/01/22 11/01/22 Range/Units 12:46 04:15 04:15 Retic Count 1.91 H (0.10-1.80) % Iron 187 H (65-175) ug/dL TIBC 528 H (228-460) ug/dL Transferrin 377.0 H (204.0-354.0) mg/dL Lipase 334 H (23-300) U/L Assessment and Plan (1) GI bleed Current Visit: Yes Status: Acute Code(s): K92.2 - GASTROINTESTINAL HEMORRHAGE, UNSPECIFIED SNOMED Code(s): 98320561 (2) Hematemesis Current Visit: Yes Status: Acute Code(s): K92.0 - HEMATEMESIS SNOMED Code(s): 6807746 (3) Alcohol abuse Current Visit: Yes Status: Acute Code(s): F10.10 - ALCOHOL ABUSE, UNCOMPLICATED SNOMED Code(s): 14916218 (4) Iron excess Current Visit: Yes Status: Acute Code(s): E83.19 - OTHER DISORDERS OF IRON METABOLISM SNOMED Code(s): 40593594 (5) Alcohol withdrawal Current Visit: Yes Status: Acute Code(s): F10.939 - ALCOHOL USE, UNSPECIFIED WITH WITHDRAWAL, UNSPECIFIED SNOMED Code(s): 659808929
--- NOTE | 2022-11-01 18:14 | P.PN ---
Subjective Progress Note Date: 11/01/22 47-year-old male with a known history of alcohol abuse. Patient reports that he does drink heavily. He started to have abdominal pain with nausea and vomiting at home. He had stopped drinking 24 hours prior to coming into the ER. He drinks approximately a fifth a day for about the last 8 months. Patient is going through alcohol withdrawals with DTs. He has been receiving the IV Ativan. He still has some tremors in his hand. She complains of diffuse abdominal pain with more pain in the epigastric area. He also complains of soreness in the esophagus due to all of the vomiting. His emesis had been mostly bile in color. He did report possible blood noted in the emesis at home. He has never had EGD. Last colonoscopy was about 9 years ago and he had colon polyps. His father did pass away with colon cancer. Surgical service consulted in regards to abdominal pain. Patient had some mild tachycardia on admission, improved. Also note the patient had vomiting after eating pancakes and sausage. --- Patient continues to complain of episodes of hematemesis; in process of being prepped for colonoscopy and EGD tomorrow morning Objective - Vital Signs Vital signs: Vital Signs Temp 97.8 F 11/01/22 09:23 Pulse 93 11/01/22 09:23 Resp 16 11/01/22 09:23 BP 136/87 11/01/22 09:23 Pulse Ox 97 11/01/22 09:23 FiO2 Intake & Output 10/31/22 11/01/22 11/01/22 18:59 06:59 18:59 Intake Total 830 Balance 830 Intake: Oral 830 Other: Voiding Method Toilet Toilet Toilet # Voids 2 2 - Exam GENERAL: Well-developed in no acute distress. HEENT: No sclera icterus. Extraocular movements grossly intact. Moist buccal mucosa. Head is atraumatic, normocephalic. No nasal drainage. ABDOMEN: Soft. Nondistended. Diffuse tenderness with more tenderness in the epigastric and right upper quadrant area NEUROLOGIC: Alert and oriented. Cranial nerves II through XII grossly intact. - Labs CBC & Chem 7: 10/31/22 04:59 10/31/22 04:59 Labs: Abnormal Lab Results - Last 24 Hours (Table) 10/29/22 11/01/22 11/01/22 Range/Units 12:46 04:15 04:15 Retic Count 1.91 H (0.10-1.80) % Iron 187 H (65-175) ug/dL TIBC 528 H (228-460) ug/dL Transferrin 377.0 H (204.0-354.0) mg/dL Lipase 334 H (23-300) U/L Assessment and Plan Assessment: 1. Abdominal pain with nausea and vomiting 2. Alcohol withdrawal 3. Alcohol abuse 4. Anemia PLAN: -Continue supportive care -Continue CIWA protocol and IV Ativan PRN EtOH withdrawal -Continue antiemetics -Continue PPI -Further recommendations forthcoming pressure
[2022-11-01] MEDS: QUEtiapine 400 MG TAB PO SCH (21:49)
[2022-11-02 07:05] LABS: Anisocytosis Slight; Basophils % (A) 1 %; Eosinophils # (A) 0.2 k/uL (0-0.7); Eosinophils % (A) 3 %; HCT 31.7 % (39.0-53.0); HGB 9.4 gm/dL (13.0-17.5); Hypochromasia Marked; Lymphocytes # (A) 1.4 k/uL (1.0-4.8); Lymphocytes % (A) 28 %; MCH 22.1 pg (25.0-35.0); MCHC 29.6 g/dL (31.0-37.0); MCV 74.6 fL (80.0-100.0); Mean Platelet Volume 7.8; Microcytosis Moderate; Monocytes # (A) 0.4 k/uL (0-1.0); Monocytes % (A) 8 %; Neutrophils # (A) 2.9 k/uL (1.3-7.7); Neutrophils % (A) 58 %; Platelet Count 308 k/uL (150-450); RBC 4.25 m/uL (4.30-5.90); RDW 19.1 % (11.5-15.5); WBC 5.1 k/uL (3.8-10.6)
[2022-11-02 07:56] LABS: African American GFR (CKD) >90 (>60 ml/min/1.73 sqM); Anion Gap 5 mmol/L; Blood Urea Nitrogen 5 mg/dL (9-20); Calcium 8.3 mg/dL (8.4-10.2); Carbon Dioxide 26 mmol/L (22-30); Chloride 110 mmol/L (98-107); Glucose 75 mg/dL (74-99); Non-African American GFR(CKD) >90 (>60 ml/min/1.73 sqM); Potassium 4.2 mmol/L (3.5-5.1); Sodium 141 mmol/L (137-145)
[2022-11-02] MEDS: NON FORMULARY DRUG (Buprenorphine Hcl/Naloxone Hcl [Suboxone 8 Mg-2 Mg Sl Film] 1 EACH Fil SUBLINGUAL SCH (08:13)
[2022-11-02] MEDS: PANTOPRAZOLE 40 MG TABLET PO SCH ×2 (08:13→17:02)
[2022-11-02] MEDS: FAMOTIDINE 20 MG TAB PO SCH (08:13)
[2022-11-02] MEDS: PREGABALIN 100 MG CAP PO SCH ×3 (08:14→21:19)
[2022-11-02] MEDS: SODIUM FERRIC GLUCONAT-SUCROSE 125 MG in SODIUM CHLORIDE 0.9% 100 ML IVPB SCH (08:19)
[2022-11-02] MEDS: MAGNESIUM OXIDE 400 MG TAB PO SCH (08:19)
[2022-11-02] MEDS: cloNIDine HCL 0.1 MG TAB PO SCH ×3 (08:19→21:19)
[2022-11-02] MEDS: NICOTINE 21MG/24HR PATCH TRANSDERM SCH (08:19)
[2022-11-02] MEDS: QUEtiapine 100 MG TAB PO SCH ×2 (08:19→21:20)
[2022-11-02] MEDS: CYCLOBENZAPRINE 10 MG TAB PO PRN (08:26)
[2022-11-02] MEDS: LORazepam 1 MG TAB PO PRN ×2 (08:26→17:02)
[2022-11-02] MEDS: FLUTICASONE 50MCG/SPRAY NASAL 16GM EA NOSTRIL SCH (08:27)
[2022-11-02] MEDS: SUCRALFATE 1 GM TAB PO SCH ×2 (08:28→21:19)
[2022-11-02] MEDS: THIAMINE 100 MG TAB PO SCH (08:28)
[2022-11-02] MEDS ORDERED: LIDOCAINE 2% INJ 20 MG/ML (2 ML VIAL) ONE (16:03)
[2022-11-02] MEDS ORDERED: PROPOFOL 10 MG/ML 20 ML VIAL IV ONE (16:03)
[2022-11-02] MEDS ORDERED: LACTATED RINGERS 1,000 ML IV ONE ×2 (16:06)
[2022-11-02] MEDS ORDERED: LACTATED RINGERS 1,000 ML IV SCH (16:41)
[2022-11-02] MEDS ORDERED: LIDOCAINE 1% (10MG/ML) FOR IV START INTRADERMA PRN (16:41)
[2022-11-02] MEDS: 0.9% NACL WITH KCL 20 MEQ/L 1,000 ML with THIAMINE 100 MG, FOLIC ACID 1 MG IV SCH ×3 (17:41)
--- NOTE | 2022-11-02 17:43 | P.PN ---
Subjective Progress Note Date: 11/02/22 Principal diagnosis: abdominal pain, ETOH withdrawal, anemia Pt reports that he feels ok, but reports overall anxiety and restlessness with being hospitalized. Reports generalized abdominal discomfort and reports he had diarrhea this morning. Denies blood in stool, melena, and n/v. Objective - Vital Signs Vital signs: Vital Signs Temp 98.4 F 11/02/22 12:34 Pulse 83 11/02/22 12:34 Resp 18 11/02/22 12:34 BP 134/80 11/02/22 12:34 Pulse Ox 99 11/02/22 12:34 FiO2 Intake & Output 11/01/22 11/02/22 11/02/22 18:59 06:59 18:59 Intake Total 700 4 Balance 700 4 Intake: Intake, IV Titration 100 Amount Sodium Ferric Gluconat- 100 Sucrose 125 mg In Sodium Chloride 0.9% 100 ml @ 100 mls/hr IVPB DAILY BRUCE Rx#:[id number] Oral 600 4 Other: Voiding Method Toilet Toilet # Bowel Movements 4 - Constitutional General appearance: Present: average body habitus, no acute distress - EENT Eyes: Present: anicteric sclerae, EOMI ENT: Present: hearing grossly normal - Respiratory Respiratory: bilateral: CTA - Cardiovascular Rhythm: regular Heart sounds: normal: S1, S2 Abnormal Heart Sounds: Absent: systolic murmur, diastolic murmur, rub, S3 Gallop, S4 Gallop, click, other - Gastrointestinal General gastrointestinal: Present: soft, tenderness. Absent: organomegaly Localized gastrointestinal: tender: diffuse - Integumentary Integumentary: Present: normal - Neurologic Neurologic Comment(s): grossly intact Neurologic: Present: CNII-XII intact - Musculoskeletal Musculoskeletal: Present: strength equal bilaterally - Psychiatric Psychiatric: Present: A&O x's 3, appropriate affect, intact judgment & insight - Labs CBC & Chem 7: 11/02/22 06:10 11/02/22 06:10 Labs: Abnormal Lab Results - Last 24 Hours (Table) 11/02/22 11/02/22 Range/Units 06:10 06:10 RBC 4.25 L (4.30-5.90) m/uL Hgb 9.4 L (13.0-17.5) gm/dL Hct 31.7 L (39.0-53.0) % MCV 74.6 L (80.0-100.0) fL MCH 22.1 L (25.0-35.0) pg MCHC 29.6 L (31.0-37.0) g/dL RDW 19.1 H (11.5-15.5) % Chloride 110 H (98-107) mmol/L BUN 5 L (9-20) mg/dL Calcium 8.3 L (8.4-10.2) mg/dL Assessment and Plan (1) Microcytic hypochromic anemia Current Visit: Yes Status: Acute Priority: Medium Code(s): D50.9 - IRON DEFICIENCY ANEMIA, UNSPECIFIED SNOMED Code(s): 71956701 Plan: Anemia -Microcytic and hypochromic. Likely multifactorial underlying causes. -Marrow damage from heavy ETOH use over long period of time. -Ferritin low end of normal and TIBC high. With liver disease and chronic inflammation would anticipate that ferritin would be much more elevated then it is. Parenteral iron ordered deficiency. -Hemoglobin stable, 9.4. Transfuse for Hgb <7 or if symptomatic. Will continue to monitor blood counts -Family Hx of colon cancer. Pt reports hx of hematemesis and blood in stools. EGD and colonoscopy planned for today. Abd pain and vomiting -Sx have improved since admit, no recent episodes of vomting -2/2 to withdrawl from alcohol. Pt is on [facility] protocol
[2022-11-02] MEDS: lamoTRIgine 25 MG TAB PO SCH (21:19)
[2022-11-02] MEDS: QUEtiapine 400 MG TAB PO SCH (21:20)
[2022-11-03] MEDS: LORazepam 1 MG TAB PO PRN ×3 (00:51→13:03)
--- NOTE | 2022-11-03 02:24 | PN ---
PROGRESS NOTE SUBJECTIVE: A 47-year-old white male, alcohol detox, severe anemia, which has increased from 8 up into the 9 range today. He has been given IV Venofer. He was found to have gastritis and hemorrhoids on EGD and colonoscopy, started on Lamictal for bipolar disorder as he has a history of this and he has not been medicated and he has been very depressed. He agrees to take this. He is going to go back to [place] tomorrow. OBJECTIVE: CARDIOVASCULAR: S1, S2. LUNGS: Clear. GI: Soft. HEMATOLOGY: Negative Homans. ASSESSMENT: Alcohol withdrawal, severe anemia, iron deficiency, external hemorrhoids, gastritis, bipolar. Continue current treatments and Lamictal. Go home tomorrow. MMODL / IJN: [id number] /
[2022-11-03 07:52] VITALS: BP 134/76; RESP 20; TEMP 98
[2022-11-03] MEDS: PREGABALIN 100 MG CAP PO SCH (08:43)
[2022-11-03] MEDS: THIAMINE 100 MG TAB PO SCH (08:43)
[2022-11-03] MEDS: FAMOTIDINE 20 MG TAB PO SCH (08:44)
[2022-11-03] MEDS: PANTOPRAZOLE 40 MG TABLET PO SCH (08:44)
[2022-11-03] MEDS: MAGNESIUM OXIDE 400 MG TAB PO SCH (08:44)
[2022-11-03] MEDS: NICOTINE 21MG/24HR PATCH TRANSDERM SCH (08:44)
[2022-11-03] MEDS: cloNIDine HCL 0.1 MG TAB PO SCH (08:44)
[2022-11-03] MEDS: lamoTRIgine 25 MG TAB PO SCH (08:44)
[2022-11-03] MEDS: SUCRALFATE 1 GM TAB PO SCH (08:44)
[2022-11-03] MEDS: SODIUM FERRIC GLUCONAT-SUCROSE 125 MG in SODIUM CHLORIDE 0.9% 100 ML IVPB SCH (08:45)
[2022-11-03] MEDS: QUEtiapine 100 MG TAB PO SCH (08:52)
[2022-11-03] MEDS: FLUTICASONE 50MCG/SPRAY NASAL 16GM EA NOSTRIL SCH (08:52)
[2022-11-03] MEDS: NON FORMULARY DRUG (Buprenorphine Hcl/Naloxone Hcl [Suboxone 8 Mg-2 Mg Sl Film] 1 EACH Fil SUBLINGUAL SCH (08:53)
--- NOTE | 2022-11-03 10:30 | P.PN ---
Subjective Progress Note Date: 11/03/22 CHIEF COMPLAINT: Abdominal pain and anemia HISTORY OF PRESENT ILLNESS: Patient admitted to the hospital with alcohol intoxication. Patient status post EGD and colonoscopy showing gastritis and hemorrhoids. Patient is tolerating regular diet. He is he reports no further bleeding. Denies any abdominal pain. Hemoglobin stable and has come up from 8.8-9.4 as of yesterday. Afebrile. Patient seen and examined with Dr. magana PHYSICAL EXAM: VITAL SIGNS: Reviewed. GENERAL: Well-developed in no acute distress. HEENT: No sclera icterus. Extraocular movements grossly intact. Moist buccal mucosa. Head is atraumatic, normocephalic. ABDOMEN: Soft. Nondistended. NEUROLOGIC: Alert and oriented. Cranial nerves II through XII grossly intact. ASSESSMENT: 1. Abdominal pain with nausea and vomiting resolved 2. Status post EGD and colonoscopy revealing gastritis and hemorrhoids 3. Alcohol withdrawal 4. Alcohol abuse 5. Anemia 6. Father with history of colon cancer PLAN: -Patient is stable from surgical standpoint for discharge when medically cleared -Continue PPI Physician Hospital Manager note has been reviewed by physician. Signing provider agrees with the documented findings, assessment, and plan of care. Objective - Vital Signs Vital signs: Vital Signs Temp 98.0 F 11/03/22 07:19 Pulse 81 11/03/22 07:19 Resp 20 11/03/22 07:19 BP 134/76 11/03/22 07:19 Pulse Ox 96 11/03/22 07:19 FiO2 Intake & Output 11/02/22 11/03/22 11/03/22 18:59 06:59 18:59 Intake Total 650 Balance 650 Intake: IV 100 Intake, IV Titration 550 Amount 0.9% NaCl with KCl 20 Meq 450 /l 1,000 ml @ 50 mls/hr IV .Q20H2M BRUCE with Thiamine 100 mg with Folic Acid 1 mg Rx#: [id number] Sodium Ferric Gluconat- 100 Sucrose 125 mg In Sodium Chloride 0.9% 100 ml @ 100 mls/hr IVPB DAILY BRUCE Rx#:[id number] Other: Voiding Method Toilet # Voids 2 - Labs CBC & Chem 7: 11/02/22 06:10 11/02/22 06:10
[2022-11-03 10:37] VITALS: BMI 23.6
[2022-11-03 14:23] VITALS: PULSE 78
--- NOTE | 2022-11-04 10:59 | DS ---
DISCHARGE SUMMARY DISCHARGE DIAGNOSES: Alcohol abuse, alcohol withdrawal, gastrointestinal bleed, severe iron deficiency anemia, hematemesis. DISCHARGE MEDICATIONS: 1. Nicotine patch 21 mg daily. 2. Lamictal 50 b.i.d. 3. Mag oxide 400 mg daily. 4. Thiamine 100 mg daily. 5. Catapres 0.1 mg t.i.d. 6. Suboxone 8 mg/2 mg he takes as directed at home. 7. Lyrica 100 t.i.d. 8. Omeprazole 40 b.i.d. 9. Naprosyn 375 b.i.d. 10.Flexeril 10 mg b.i.d. 11.Seroquel 400 at bedtime. 12.Fluticasone 2 nasal sprays daily. 13.Ventolin HFA 1 to 2 puffs q.4 hours p.r.n. 14.Carafate 1 g b.i.d. 15.Seroquel 100 b.i.d. CONDITION: Stable. PROGNOSIS: Guarded. Ambulate as tolerated. HOSPITAL COURSE: The patient came to the hospital. He had severe anemia, alcohol withdrawal, placed on CIWA protocol. He was given Lamictal for bipolar disorder as he is more depressed on top of his Seroquel. We added Lamictal to help with his bipolar depression. He continued on multiple vitamins and CIWA protocol. He had EGD and colonoscopy, which was negative for any significant bleeding. He also had some external hemorrhoids and gastritis. Home medicines were readjusted. He was discharged home in stable condition. Follow up in the rehab center at [place] or down in the [facility]. Condition stable. Prognosis guarded. Diet as tolerated. MMODL / IJN: [id number] /
--- NOTE | 2022-11-05 08:54 | P.OP ---
Date of Procedure: 11/02/22 Preoperative Diagnosis: GI bleed Postoperative Diagnosis: Antral gastritis Normal colon Procedure(s) Performed: EGD Colonoscopy Anesthesia: MAC Surgeon: Thomas Caba Pathology: other (Antrum) Condition: stable Disposition: PACU Description of Procedure: The patient's placed on the endoscopy table in the lateral position. She received IV sedation. Digital rectal exam performed. This revealed no abnormalities. Flexible colonoscope was then placed patient anus passed throughout the entire colon. Ileocecal valve was visually is. The cecum, ascending and transverse colon appeared normal. The descending and sigmoid colon appeared normal. Scope was then brought back the rectum and stomach. Scope withdrawn for patient. There is no evidence of any lower GI bleed. Next the gastroscope placed oropharynx past esophagus and stomach. Scope some placed through the pylorus. The first and second portion duodenum appeared normal. Scope was then brought back the antrum this was mildly inflamed. A biopsies performed. Scope was then retroflexed and remainder the stomach appeared normal. The GE junction was at 40 cm. The distal esophagus appeared normal. The proximal esophagus. Normal. Scope withdrawn for patient.
[2022-11-05 12:33] LABS: Methylmalonic Acid 0.32 umol/L (<0.40)
== END 2022-11-03 14:34 | disposition home or self-care (01) | DRG 897 ==
LOC: EC 19:48 → 5NMEDONC 10-27 00:09
PROVIDERS: ADMIT Family Medicine; ATTEND Family Medicine
PROC: 0DJD8ZZ Inspection of Lower Intestinal Tract, Via Natural or Artificial Opening Endoscopic (ICD-10-PCS; principal; 2022-11-02 14:40)
PROC: 0DB78ZX Excision of Stomach, Pylorus, Via Natural or Artificial Opening Endoscopic, Diagnostic (ICD-10-PCS; principal; 2022-11-02 14:40)
DX: F10.231 Alcohol dependence with withdrawal delirium (principal); K92.0 Hematemesis; D63.8 Anemia in other chronic diseases classified elsewhere; D50.9 Iron deficiency anemia, unspecified; D53.9 Nutritional anemia, unspecified; E86.0 Dehydration; E87.6 Hypokalemia; F17.210 Nicotine dependence, cigarettes, uncomplicated; F31.9 Bipolar disorder, unspecified; F90.9 Attention-deficit hyperactivity disorder, unspecified type; R00.0 Tachycardia, unspecified; F41.9 Anxiety disorder, unspecified; E83.42 Hypomagnesemia; K29.70 Gastritis, unspecified, without bleeding; Z86.010 Personal history of colon polyps; K64.4 Residual hemorrhoidal skin tags; K70.9 Alcoholic liver disease, unspecified; Z79.1 Long term (current) use of non-steroidal anti-inflammatories (NSAID); Z79.899 Other long term (current) drug therapy; Z80.0 Family history of malignant neoplasm of digestive organs; Z81.8 Family history of other mental and behavioral disorders; Z28.310 Unvaccinated for COVID-19; Z28.21 Immunization not carried out because of patient refusal; Z71.3 Dietary counseling and surveillance
CPT/HCPCS: 36415; 43239; 45378; 74018; 80048; 80053; 80306; 80320; 82150; 82525; 82607; 82728; 82747; 83540; 83550; 83690; 83735; 83921; 84100; 85025; 85027; 85045; 88305; 93005; 96365; 96366; 96367; 96375; 99285